=== PATIENT | female | born 1985 | race Caucasian/White ===

== ENCOUNTER 2024-12-14 10:23 | Outpatient (REF) | payer OTHER, SELFPAY ==
--- OUTSIDE RECORDS SUMMARY | 2024-12-14 12:18 | XMS_ITS | Encounter Summary ---
Author Organization [employer] Address [address] [place] [address] Care Team Providers Care Architectural Representative Name Role Phone Мария Galeana MD Primary Care Provider [phone] Encounter Details Date Type Department Care Team (Latest Contact Info) Description 12/14/2024 Travel Social History Tobacco Use Types Packs/Day Years Used Date Smoking Tobacco: Former Cigarettes 1 31.2 S tarted: 1993 Smokeless Tobacco: Never Alcohol Use Standard Drinks/Week Comments Never 0 (1 standard drink = 0.6 oz pur e alcohol) Depression Answer Date Recorded Patient Health Questionnaire-9 Score 17 12/14/2024 Patient Health Questionnaire-9 Score 17 12/14/2024 Last PHQ-9: Questionnaire Data Not on file 0 12/14/2024 Housing Stability Answer Date Recorded What is your housing situation today? I have juan evans 12/07/[address] you li ve. Do you have problems with any of the following? None of the above 12/07/2024 Food Insecurity Answer Date Recorded Within the past 12 months, y ou worried that your food would run out before you got money to buy more: Never True 12/07/2024 Within the past 12 months,th e food you bought just didn't last and you didn't have enough money to get more: Never True Transportation Answer Date Recorded In the past 12 months, has l ack of transportation kept you from medical appts, meetings, work or from getting things needed for daily living? No 12/07/2024 Utilities Answer Date Recorded In the past 12 months, has t he electric, gas, oil or water company threatened to shut off services in your home? No 12/07/2024 Depression Answer Date Recorded Patient Health Questionnaire-2 Score 4 12/14/2024 Internet Access Answer Date Recorded Internet Access Q1 Yes 12/07/2024 Internet Access Q2 Not on file 12/07/2024 Comments No Sex and Gender Information Value Date Recorded Sex Assigned at Female 11/15/2024 3:09 PM EST Legal Sex Female 3:08 PM EST Gender Identity Female 11/15/2024 7:50 PM EST Sexual Orientation Straight 12/14/2024 9: 00 AM EST documented as of this encounter Plan of Treatment Upcoming Encounters Date Type Department Care Team (Late st Contact Info) Description 02/09/2025 10:00 AM EDT Procedure Visit [facility] [address] [place] [address] Airam Reynaga, CNM [address] [place] [address] 03/08/2025 10:00 AM EDT Telemedicine [facility] [address] [place] [address] Мария Galeana MD [address] [place] [address] documented as of this encounter Visit Diagnoses Not on filedocumented in this encounter Additional Health Concerns Assessment Noted Time PHQ-9 Depression Total Score: 17 025 9:48 AM EST documented as of this encounter Care Teams Architectural Representative Relationship Specialty Start Date End Date Мария Galeana MD [address] [place] [address] PCP - General Family Medicine 12/14/24 documented as of this encounter
--- OUTSIDE RECORDS SUMMARY | 2024-12-14 12:18 | XMS_ITS | Encounter Summary ---
Author Organization [employer] Address [address] [place] [address] [address] [place] [address] Care Team Providers Care Furniture Fabricator Name Role Phone Unavailable Primary Care Provider Unavailabl e Reason for Visit * Reason Onset Date Comments new patient request 11/15/2024 Encounter Details Date Type Department Care Team (Late st Contact Info) Description 11/15/2024 Telephone [facility] [address] [place] [address] Philipp Lepe MD [address] [place] [address] new patient request Social History Tobacco Use Types Packs/Day Years Used Date Smoking Tobacco: Never Assessed Comments Unknown Sex and Gender Information Value Date Recorded Sex Assigned at Female 11/15/2024 3:09 PM EST Legal Sex Female 3:08 PM EST Gender Identity Female 11/15/2024 7:50 PM EST Sexual Orientation Straight 12/14/2024 9: 00 AM EST documented as of this encounter Miscellaneous Notes * Telephone Encounter - Kalyani Gallegos - 11/15/2024 3:28 PM EST Outgoing call to pt to book TEACHERS AIDE appt. Patient booked for 12/14/[address] Galeana. Medical conditions reported: Anemic, Pre- diabetic. Appt reminder sent via text and mail. * Telephone Encounter - Everton Camarillo - 11/15/2024 3:11 PM EST TC from caller requesting NEW PATIENT visit . DX : Anemic Pre-diabetic ( never follow up) Insurance name : earl Location : [facility] Demographic information updated documented in this encounter Plan of Treatment Upcoming Encounters Date Type Department Care Team (Late st Contact Info) Description 02/09/2025 10:00 AM EDT Procedure Visit [facility]ED[facility] [address] [place] [address] Airam Reynaga, FIDEL [address] [place] [address] 03/08/2025 10:00 AM EDT Telemedicine [facility] [address] [place], [place] [id number] Мария Galeana MD [address] [place] [address] documented as of this encounter Visit Diagnoses Not on filedocumented in this encounter
--- OUTSIDE RECORDS SUMMARY | 2024-12-14 12:18 | XMS_ITS | Encounter Summary ---
Author Organization [employer] Address [address] [place] [address] Care Team Providers Care Adoption Manager Name Role Phone Unavailable Primary Care Provider Unavailabl e Encounter Details Date Type Department Care Team (Latest Contact Info) Description 12/07/2024 Travel Social History Tobacco Use Types Packs/Day Years Used Date Smoking Tobacco: Never Assessed Housing Stability Answer Date Recorded What is [...] off services in your home? No 12/07/2024 Internet Access Answer Date Recorded Internet Access Q1 Yes 12/07/2024 Internet Access Q2 Not on file 12/07/2024 Comments Unknown Sex and Gender Information Value [...] Description 02/09/2025 10:00 AM EDT Procedure Visit [facility] MED & PEDS [address] [place] [address] Airam Reynaga, FIDEL [address] [place] [address] 03/08/2025 10:00 AM EDT Telemedicine [facility] MED & PEDS [address] [place] [address] Мария Galeana MD [address] [place] [address] documented as of this encounter Visit Diagnoses Not on filedocumented in this encounter
--- OUTSIDE RECORDS SUMMARY | 2024-12-14 12:18 | XMS_ITS | Encounter Summary ---
Author Organization [employer] Address [address] [facility] [address]t [place] [address] Care Team Providers Care Can Filling Machine Operator Name Role Phone Unavailable Primary Care Provider Unavailabl e Reason for Visit * Reason Comments Pre-visit Planning SDOH negative, Tobac co screening negative. Encounter Details Date Type Department Care Team ([facility] st Contact Info) Description 12/07/2024 Patient Outreach [facility] [address] [place] [address] Мария Galeana MD [address] [place] [address] Pre-visit Planning (SDOH negative, Tobacco screening negative. ) Social History Tobacco Use Types Packs/Day Years [...] AM EST documented as of this encounter Progress Notes * Molly Ulrich - 12/07/2024 3:17 PM EST CC Molly Espinal placed successful outbound call to patient for pre-visit planning. Patient name and confirmed. Patient confirms appt date and time, and has transportation arrangements. Biggest concern for appointment at this time is would like to check for diabetes. Appropriate screenings completed in anticipation of appointment. documented in this encounter Plan of Treatment Upcoming Encounters Date Type Department Care Team (Late st Contact Info) Description 02/09/2025 10:00 AM EDT Procedure Visit [facility] [address] [place] [address] Airam Reynaga, FIDEL [address] [place] [address] 03/08/2025 10:00 AM EDT Telemedicine [facility] [address] [place] [address] Мария Galeana MD [address] [place] [address] documented as of this encounter Visit Diagnoses Not on filedocumented in this encounter
--- OUTSIDE RECORDS SUMMARY | 2024-12-14 12:18 | XMS_ITS | Clinical Summary ---
Author Organization [employer] Address [address] [place] [address] Care Team Providers Care Cashier Manager Name Role Phone Мария Galeana MD Primary Care Provider [phone] Allergies No known active allergies Medications ibuprofen 800 MG tablet Take 800 mg by mouth. 06/09/2023 Active hydrOXYzine pamoate (Vistaril) 25 MG capsule Take 1 capsule (25 mg) by mouth if needed at bedtime for anxiety. 30 capsule 2 12/14/2024 Active Active Problems Problem Noted Date Diagnosed Date Anxiety 12/14/2024 Migraine without aura and wi thout status migrainosus, not intractable 12/14/2024 Prediabetes 12/14/2024 Encounters Date Type Department Care Team Description 12/14/2024 9:30 AM EST Office Visit [facility] MED & PEDS [address] [place] [address] Мария Galeana MD Anxiety (Primary Dx); Depression, unspecified depression type; Migraine without aura and without status migrainosus, not intractable; Encounter for screening mammogram for breast cancer; Prediabetes; Encounter for immunization 12/14/2024 Travel 12/07/2024 Patient Outreach [facility] PEDS [address] [place] [address] Мария Galeana MD Pre-visit Planning (SDOH negative, Tobacco screening negative. ) 12/07/2024 Travel 11/15/2024 Telephone [facility] [address] [place] [address] Philipp Lepe MD new patient request from Last 3 Months Immunizations Name Administration Dates Next Due Influenza Injectable Quadriv alant Preservative Free IIV4 MDCK 11/11/2017 Influenza, IIV3, injectable 09/19/2019 Influenza, seasonal, injectable, preservative fr ee 12/14/2024 Td (adult), unspecified 01/06/2020 Tdap 06/02/2019 Social History Tobacco Use Types Packs/Day Years Used Date Smoking Tobacco: Former Cigarettes 1 31.2 S tarted: 1993 Smokeless Tobacco: Never Tobacco Cessation:Counseling Given: Not Answered Alcohol Use Standard Drinks/Week Comments Never 0 [...] Orientation Straight 12/14/2024 9: 00 AM EST Last Filed Vital Signs Vital Sign Reading Time Taken Comments Blood Pressure 139/81 12/14/2024 9:27 AM EST Pulse 74 12/14/2024 9:27 AM EST Temperature 36.7 ??C (98.1 ??F) 12/14/2024 9:27 AM ES T Respiratory Rate 18 12/14/2024 9:27 AM EST Oxygen Saturation 99% 12/14/2024 9:27 AM EST Inhaled Oxygen Concentration - - Weight 75.3 kg (166 lb) 12/14/2024 9:27 AM EST Height 158.8 cm (5' 2.5 ) 12/14/2024 9:27 AM EST Body Mass Index 29.88 12/14/2024 9:27 AM EST Plan of Treatment Upcoming Encounters Date Type Department Care Team (Late st Contact Info) Description 02/09/2025 10:00 AM EDT Procedure Visit [facility] MED & PEDS [address] [place] [address] Airam Reynaga, GER [address] [place] [address] 03/08/2025 10:00 AM EDT Telemedicine [facility] MED & PEDS [address] [place] [address] Мария Galeana MD [address] [place] [address] Health Maintenance Due Date Last Done Comments Diabetes: Hemoglobin A1C 1983 HIV Screening 1983 Alcohol/Substance Use Screening 1995 Family Planning (PISQ) 1998 Hepatitis C Screening 2001 Hepatitis B Vaccines (1 of 3 - 19+ 3-dose series) 2002 Pneumococcal Vaccine: Pediatrics (0 to 5 Years) and At-Risk Patients (6 to 49) Years) (1 of 2 - PCV) 2002 Pap Smear 2004 Cervical Cancer Screening 2013 HPV/Cotest 2013 Mammogram 2023 COVID-19 Vaccine (4 2023-2 5 season) 2024 01/07/2022, 02/11/2021, 01/20/2021 Depression Monitoring (PHQ-9) 06/16/2025, 12/14/2024 SDOH Screening 12/07/2025 12/07/2024 Depression Screening 12/14/2025 12/14/2024, 12/14/2024 Tobacco Screening 12/14/2025 12/14/2024 DTaP/Tdap/Td Vaccines (3 - T d or Tdap) 01/05/2030 01/06/2020, 06/02/2019 Zoster Vaccines (1 of 2) 2033 RSV Patients and Patients Aged 60 years or older (1 - 1-dose 75+ series) 2058 Influenza Vaccine Completed 12/14/2024, 09/19/2019, 11/11/2017 HIB Vaccines Aged Out No longer eligi ble based on patient's age to complete this topic HPV Vaccines Aged Out No longer eligi ble based on patient's age to complete this topic Hepatitis A Vaccines Aged Out No long er eligible based on patient's age to complete this topic IPV Vaccines Aged Out No longer eligi ble based on patient's age to complete this topic Meningococcal Vaccine Aged Out No harjinder dee eligible based on patient's age to complete this topic RSV under 20 months Aged Out No longe r eligible based on patient's age to complete this topic Rotavirus Vaccines Aged Out No longer eligible based on patient's age to complete this topic Insurance [facility] Care Teams Cashier Manager Relationship Specialty Start Date End Date Мария Galeana MD [address] [place] [id number] PCP - General Family Medicine 12/14/24
--- OUTSIDE RECORDS SUMMARY | 2024-12-14 12:18 | XMS_ITS | Clinical Summary ---
Author Organization [facility] Address [address] [place] [address] Phone Care Team Providers Care Water Fitness Instructor Name Role Phone Bam Youngblood MD Primary Care Provider [phone] Allergies No known active allergies Medications No known medications Active Problems No known active problems Encounters Date Type Department Care Team Description 11/07/2024 4:38 PM EST - 11/07/2024 7:38 PM EST Emergency [facility] Emergency [address] [place] [address] Geraldo Escalante MD Parainfluenza (Primary Dx) Discharge Disposition: Home or Self Care from Last 3 Months Social History Tobacco Use Types Packs/Day Years Used Date Smoking Tobacco: Former Cigarettes 0.5 22.2 S tarted: 10/12/2002 Smokeless Tobacco: Never Tobacco Cessation:Counseling Given: Not Answered Alcohol Use Standard Drinks/Week Comments Not Currently 0 (1 standard drink = 0.6 oz pur e alcohol) Comments Unknown Sex and Gender Information Value Date Recorded Sex Assigned at Female 11/07/2024 10:02 PM EST Legal Sex Female 7:32 PM EST Gender Identity Female 11/07/2024 10:02 PM EST Sexual Orientation Choose not to disclose 2024 10:02 PM EST Obstetrics History Last Filed Vital Signs Vital Sign Reading Time Taken Comments Blood Pressure 139/84 11/07/2024 7:00 PM EST Pulse 88 11/07/2024 7:00 PM EST Temperature 37.1 ??C (98.8 ??F) 11/07/2024 7:00 PM ES T Respiratory Rate 15 11/07/2024 7:00 PM EST Oxygen Saturation 98% 11/07/2024 7:00 PM EST Inhaled Oxygen Concentration - - Weight 74.8 kg (165 lb) 11/07/2024 10:33 AM EST Height 154.9 cm (5' 1 ) 11/07/2024 10:33 AM EST Body Mass Index 31.18 11/07/2024 10:33 AM EST Plan of Treatment Health Maintenance Due Date Last Done Comments Hepatitis B Vaccines (1 of 3 - 19+ 3-dose series) 2002 Cervical Cancer Screening: P ap Smear 2004 Depression Screening 09/13/2022 HIV Screening 09/13/2022 Hepatitis C Screening 09/13/2022 Social Influencers of Health Screening 09/13/2022 Breast Cancer Screening 03/20/2024 03/20/2022 COVID-19 Vaccine (4 - 2023-2 5 season) 2024 01/07/2022, 02/11/2021, 01/20/2021 Influenza Vaccine (#1) 2024 9, 11/11/2017 DTaP,Tdap,and Td Vaccines (3 - Td or Tdap) 01/05/2030 01/06/2020, 06/02/2019 HIB Vaccines Aged Out No longer eligi [...] on patient's age to complete this topic MMR Vaccines Aged Out No longer eligi ble based on patient's age to complete this topic Meningococcal ACWY Vaccine Aged Out N o longer eligible based on patient's age to complete this topic Meningococcal B Vacine Aged Out No lo nger eligible based on patient's age to complete this topic Pneumococcal Vaccine: Pediatrics (0 to 5 Years) and At-Risk Patients (6 to 64 Years) Aged Out No longer eligible b ased on patient's age to complete this topic RSV Immunization Patients Under 20 months Aged Out No longer eligible b ased on patient's age to complete this topic Varicella Vaccines Aged Out No longer eligible based on patient's age to complete this topic Procedures Procedure Name Priority Date/Time Associated Diagnosis Comments RESPIRATORY VIRUS PANEL MOLECULAR STUDY STAT 11/07/2024 5:54 PM EST XR CHEST 2 VIEWS STAT 11/07/2024 1:20 PM EST CBC WITH AUTO DIFFERENTIAL STAT 11/07/2024 10:42 AM EST BASIC METABOLIC PANEL STAT 11/07/2024 10:42 AM EST CBC AND DIFFERENTIAL STAT 11/07/2024 10:42 AM EST ECG 12-LEAD STAT 11/07/2024 10:41 AM EST ECG ANNOTATED 11/07/2024 RAFAT SCREENING DIGITAL Routine 03/20/2022 5:13 PM EDT Encounter for screening mammogram for malignant neoplasm of breast from Last 3 Months or Most Recently Relevant to Health Maintenance Results * (ABNORMAL) Respiratory virus panel molecular study (11/07/2024 5:54 PM EST) Adenovirus Detection by PCR Not Detected Not Detected LAB MICROBIOLOGY METHOD 11/07/2024 7:29 PM [facility] Influenza A PCR Not Detected Not Detected LAB MICROBIOLOGY METHOD 11/07/2024 7:29 PM [facility] Influenza B PCR Not Detected Not Detected LAB MICROBIOLOGY METHOD 11/07/2024 7:29 PM [facility] Coronavirus 229E Not Detected Not Detected LAB MICROBIOLOGY METHOD 11/07/2024 7:29 PM [facility] Coronavirus HKU1 Not Detected Not Detected LAB MICROBIOLOGY METHOD 11/07/2024 7:29 PM [facility] Coronavirus OC43 Not Detected Not Detected LAB MICROBIOLOGY METHOD 11/07/2024 7:29 PM [facility] Coronavirus NL63 Not Detected Not Detected LAB MICROBIOLOGY METHOD 11/07/2024 7:29 PM [facility] Parainfluenza Virus 1 Not Detected Not Detected LAB MICROBIOLOGY METHOD 11/07/2024 7:29 PM [facility] Parainfluenza Virus 2 Not Detected Not Detected LAB MICROBIOLOGY METHOD 11/07/2024 7:29 PM [facility] Parainfluenza Virus 3 Not Detected Not Detected LAB MICROBIOLOGY METHOD 11/07/2024 7:29 PM [facility] Parainfluenza Virus 4 Detected(A ) Not Detected LAB MICROBIOLOGY METHOD 11/07/2024 7:29 PM [facility] RSV PCR Not Detected Not Detected LAB MICROBIOLOGY METHOD 11/07/2024 7:29 PM [facility] Human Metapneumovirus A and B Not Detected Not Detected LAB MICROBIOLOGY METHOD 11/07/2024 7:29 PM [facility] Rhinovirus/Entero virus Not Detected Not Detected LAB MICROBIOLOGY METHOD 11/07/2024 7:29 PM [facility] Bordetella pertussis Not Detected Not Detected LAB MICROBIOLOGY METHOD 11/07/2024 7:29 PM [facility] Bordetella parapertussis Not Detected Not Detected LAB MICROBIOLOGY METHOD 11/07/2024 7:29 PM [facility] Mycoplasma pneumo by PCR Not Detected Not Detected LAB MICROBIOLOGY METHOD 11/07/2024 7:29 PM [facility] Chlamydia pneumoniae Not Detected Not Detected LAB MICROBIOLOGY METHOD 11/07/2024 7:29 PM [facility] SARS COV-2 Not Detected Not Detected LAB MICROBIOLOGY METHOD 11/07/2024 7:29 PM [facility] Swab Both anterior nares / Unknown Non-blood Collection / Unknown 11/07/2024 5:54 PM EST 11/07/2024 6:13 PM EST Narrative [facility] - 11/07/2024 7:29 PM EST Testing was performed using the Just Dial Respiratory Pathogen PCR Assay. All results must be correlated with the clinical findings. Results should not be used as the sole basis for diagnosis. False Negative results may occur from the presence of sequence variants in the region targeted by the assay or the presence of inhibitors. Results may be affected by concurrent antiviral/antimicrobial therapy or levels of organisms that are below the limit of detection. Ethel HARDEN LAB MICROBIOLOGY - GENERAL ORDERABLES Final Result [facility] [address] [place] [address], * XR Chest 2 Views (11/07/2024 1:20 PM EST) Anatomical Region Laterality Modality Body Radiographic Yanelis ging 11/07/2024 1:22 PM EST Impressions 11/07/2024 1:22 PM EST Impression: No active pulmonary process identified. No significant change. Telearnel HARDEN ([id number]) -------- FINAL REPORT -------- Dictated By: Lucia David Dictated Date: 11/07/2024 13:22 ET Assigned Physician: Lucia David Reviewed and Electronically Signed By: Lucia David Signed Date: 11/07/2024 13:22 ET Workstation ID: [id number] Transcribed By: Self Edit Transcribed Date: 11/07/2024 13:22 ET Narrative 11/07/2024 1:22 PM EST History: Dyspnea. Comparison: 04/18/24 Findings: PA and lateral views. The cardiomediastinal silhouette, hilar contours and pulmonary vascularity are within normal limits. The lungs are clear. The costophrenic angles are sharp. Minimal thoracic vertebral endplate spurring is noted. Procedure Note Lucia David MD - 11/07/2024 History: Dyspnea. Comparison: 04/18/24 Findings: PA and lateral views. The cardiomediastinal silhouette, hilar contours andpulmonary vascularity are within normal limits. The lungs are clear. Thecostophrenic angles are sharp. Minimal thoracic vertebral endplate spurring is noted. IMPRESSION: Impression: No active pulmonary process identified. No significant change. Telerad FINA ([id number]) -------- FINAL REPORT -------- Dictated By: Lucia David Dictated Date: 11/07/2024 13:22 ET Assigned Physician: Lucia David Reviewed and Electronically Signed By: Lucia David Signed Date: 11/07/2024 13:22 ET Workstation ID: [id number] Transcribed By: Self Edit Transcribed Date: 11/07/2024 13:22 ET Kellie Marin DO IMG XR PROCEDURES Final R esult * (ABNORMAL) CBC auto differential (11/07/2024 10:42 AM EST) WBC 6.0 4.8 - 10.8 K/mcL LAB HEMETOLOGY METHOD 11/07/2024 11:24 AM [facility] RBC 4.20 3.80 - 4.80 M/mcL LAB HEMETOLOGY METHOD 11/07/2024 11:24 AM [facility] Hemoglobin 11.1(L) 11.5 - 16.0 g/dL LAB HEMETOLOGY METHOD 11/07/2024 11:24 AM [facility] Hematocrit 35.0 35.0 - 47.0 % LAB HEMETOLOGY METHOD 11/07/2024 11:24 AM [facility] MCV 83.9 79.0 - 98.0 FL LAB HEMETOLOGY METHOD 11/07/2024 11:24 AM [facility] MCH 26.6(L) 27.0 - 32.0 pcg LAB HEMETOLOGY METHOD 11/07/2024 11:24 AM [facility] MCHC 31.7(L) 32.0 - 37.0 g/dL LAB HEMETOLOGY METHOD 11/07/2024 11:24 AM [facility] RDW 14.9 11.0 - 15.0 % LAB HEMETOLOGY METHOD 11/07/2024 11:24 AM [facility] Platelets 328 130 - 400 K/mcL LAB HEMETOLOGY METHOD 11/07/2024 11:24 AM [facility] MPV 10.8 7.0 - 11.0 FL LAB HEMETOLOGY METHOD 11/07/2024 11:24 AM [facility] NRBC 0.0 <1.0 % LAB HEMETOLOGY METHOD 11/07/2024 11:24 AM [facility] NRBC Absolute 0.00 <0.10 K/mcL LAB HEMETOLOGY METHOD 11/07/2024 11:24 AM [facility] Neutrophils Relative 52.8 % LAB HEMETOLOGY METHOD 11/07/2024 11:24 AM [facility] Lymphocytes Relative 28.3 % LAB HEMETOLOGY METHOD 11/07/2024 11:24 AM [facility] Monocytes Relative 12.2 % LAB HEMETOLOGY METHOD 11/07/2024 11:24 AM [facility] Eosinophils Relative 5.2 % LAB HEMETOLOGY METHOD 11/07/2024 11:24 AM [facility] Basophils Relative 1.2 % LAB HEMETOLOGY METHOD 11/07/2024 11:24 AM [facility] Immature Granulocytes Relative 0.3 % LAB HEMETOLOGY METHOD 11/07/2024 11:24 AM [facility] Neutrophils Absolute 3.16 1.50 - 7.00 K/mcL LAB HEMETOLOGY METHOD 11/07/2024 11:24 AM [facility] Lymphocytes Absolute 1.69 1.00 - 5.00 K/mcL LAB HEMETOLOGY METHOD 11/07/2024 11:24 AM EST [facility] Monocytes Absolute 0.73 0.20 - 1.00 K/mcL LAB HEMETOLOGY METHOD 11/07/2024 11:24 AM EST [facility] Eosinophils Absolute 0.31 0.00 - 0.50 K/mcL LAB HEMETOLOGY METHOD 11/07/2024 11:24 AM EST [facility] Basophils Absolute 0.07 0.00 - 0.20 K/mcL LAB HEMETOLOGY METHOD 11/07/2024 11:24 AM [facility] Immature Granulocytes Absolute 0.02 0.00 - 0.03 K/mcL LAB HEMETOLOGY METHOD 11/07/2024 11:24 AM [facility] Blood Venous blood specimen / Unknown Venipuncture / Unknown 11/07/2024 10:42 AM EST 11/07/2024 11:12 AM EST Dandre Elie Marin DO LAB BLOOD ORDERABLES Monet l Result [facility] [address] [place] [address], * (ABNORMAL) Basic metabolic panel (11/07/2024 10:42 AM EST) Sodium 136 133 - 145 mmol/L LAB CHEMISTRY METHOD 11/07/2024 11:50 AM [facility] Potassium 4.1 3.5 - 5.5 mmol/L LAB CHEMISTRY METHOD 11/07/2024 11:50 AM [facility] Chloride 105 96 - 110 mmol/L LAB CHEMISTRY METHOD 11/07/2024 11:50 AM [facility] CO2 25 21 - 32 mmol/L LAB CHEMISTRY METHOD 11/07/2024 11:50 AM [facility] Anion Gap 6 3 - 11 LAB CHEMISTRY METHOD 11/07/2024 11:50 AM [facility] Glucose 115(H) 70 - 100 mg/dL LAB CHEMISTRY METHOD 11/07/2024 11:50 AM EST [facility] BUN 8 5 - 25 mg/dL LAB CHEMISTRY METHOD 11/07/2024 11:50 AM [facility] Creatinine 0.79 0.50 - 1.10 mg/dL LAB CHEMISTRY METHOD 11/07/2024 11:50 AM EST [facility] eGFR 97 >=60 mL/min/1. 73m2 LAB CHEMISTRY METHOD 11/07/2024 11:50 AM EST [facility] Comment:Calculation based on the??Chronic Kidney Disease Epidemiology Collaboration (CKD-EPI) equation refit??without adjustment for race. BUN/Creatinine Ratio 10.1 LAB CHEMISTRY METHOD 11/07/2024 11:50 AM [facility] Calcium 9.3 8.5 - 10.5 mg/dL LAB CHEMISTRY METHOD 11/07/2024 11:50 AM [facility] Blood Venous blood specimen / Unknown Venipuncture / Unknown 11/07/2024 10:42 AM EST 11/07/2024 11:12 AM EST Kellie Elie Gunnny Tomas DO LAB BLOOD ORDERABLES Monet l Result [facility] [address] [place] [address], * ECG 12 lead (11/07/2024 10:41 AM EST) Ventricular Rate ECG 86 BPM GEMUSE Atrial Rate 86 BPM GEMUSE P-R Interval 130 ms GEMUSE QRS Duration 70 ms GEMUSE Q-T Interval 364 ms GEMUSE QTc 435 ms GEMUSE P Wave [place] 53 degrees GEMUSE R [place] 37 degrees GEMUSE T [place] 27 degrees GEMUSE ECG Interpretation Normal sinus rhythm When compared with ECG of 30-SEP-2022 17:47, No significant change was found Confirmed by ASH MCGUIRE ([id number]) on 11/07/2024 9:18:12 PM GEMUSE 11/07/2024 10:4 1 AM EST 11/07/2024 9:18 PM EST us Kellie Marin DO ECG ORDERABLES Final Res ult GEMUSE * ECG-Annotated (11/07/2024) us Provider Onbase ECG ORDERABLES Final Result * RAFAT SCREENING DIGITAL (03/20/2022 5:13 PM EDT) Anatomical Region Laterality Modality Mammography 03/20/2022 12:4 7 PM EDT Narrative 03/20/2022 5:13 PM EDT [facility] Diagnostic Imaging Department [address] [place] [address] Patient: ??ROBERTO CARLOS,SERGIO Coello ?/Age/Sex: 1985 - 36 - F Unit#: ??[id number] ? Location/Status: ??SPDIMAM/REG CLI ? Mnemonic/Ordering Site: ??DIGSC/SPMAM Ordering Physician: ??XAVIER CHAPMAN MD Rafat Screening Digital - 03/20/221621 History: Breast cancer screening. Technique: ?? Bilateral digital mammography. Conventional CC and MLO projections with tomosynthesis MLO views and computer aided detection. Comparison: None. ??Baseline examination. Findings: ?? Breast density: Heterogeneous, potentially obscuring small lesions, category c density (as calculated by [employer] Vol[employer] software). Discrete oval 5 x 7 mm masslike asymmetry with adjacent 3.4 mm lobulation projects posterior lateral upper right breast as revealed on MLO projection including tomography, possible intramammary lymph node although not definitively characterized. Breast tissue otherwise without concerning focal abnormality. ??No architectural distortion or suspicious grouping of microcalcification. Impression: 1. ??Right breast masslike asymmetry affecting posterior lateral upper right breast, roughly 10 o'clock position, 10-11 cm from the nipple is incompletely characterized. ??Recommend targeted right breast ultrasound for further assessment. 2. ??Otherwise negative mammography. ??No suspicious abnormality identified on the left. Patient will be contacted directly to arrange for supplementary imaging. BIRADS Category 0: Incomplete. Needs further imaging evaluation, [id number], [id number] Patient information entered into a reminder system with a target date for the next [place]ogram. [id number] Dictating Physician: ??SCOOTER ALONSO MD Electronically Signed by: ??SCOOTER ALONSO MD Dic Date/Time: ??03/20/22 170 Sign date/Time: ??03/20/22 171 Procedure Note Scooter Alonso MD - 10/01/2022 [facility] Diagnostic Imaging Department [address] [place] [address] Patient: SERGIO AZEVEDOO.B./Age/Sex: 1985 - 36 - F Unit#: [id number] Location/Status: [facility] CLI Mnemonic/Ordering Site: [facility] Ordering Physician: XAVIER CHAPMAN MD Rafat Screening Digital - 03/20/22 - 1622 History: Breast cancer screening. Technique: Bilateral digital mammography. Conventional CC and MLOprojections with tomosynthesis MLO views and computer aided detection. Comparison: None. Baseline examination. Findings: Breast density: Heterogeneous, potentially obscuring smalllesions, category c density (as calculated by [employer] Vol[employer] software). Discrete oval 5 x 7 mm masslike asymmetry with adjacent 3.4 mmlobulation projects posterior lateral upper right breast as revealed on MLOprojection including tomography, possible intramammary lymph node although notdefinitively characterized. Breast tissue otherwise without concerning focal abnormality. Noarchitectural distortion or suspicious grouping of microcalcification. Impression: 1. Right breast masslike asymmetry affecting posterior lateral upperright breast, roughly 10 o'clock position, 10-11 cm from the nipple isincompletely characterized. Recommend targeted right breast ultrasound for further assessment. 2. Otherwise negative mammography. No suspicious abnormality identifiedon the left. Patient will be contacted directly to arrange for supplementary imaging. BIRADS Category 0: Incomplete. Needs further imaging evaluation, [id number], [id number] Patient information entered into a reminder system with a target date forthe next mammogram. [id number] Dictating Physician: SCOOTER ALONSO MD Electronically Signed by: SCOOTER ALONSO MD Dic Date/Time: 03/20/22 170 Sign date/Time: 03/20/22 171 Xavier Chapman MD IMG BI PROCEDURES Final Result from Last 3 Months or Most Recently Relevant to Health Maintenance Additional Health Concerns Infection Onset Date Last Indicated Parainfluenza Virus 11/07/2024 11/07/2024 Insurance MEDICAID - [place] Care Teams Water Fitness Instructor Relationship Specialty Start Date End Date Bam Youngblood MD [address] [place] [address] Tremaine AsencioImeldaBOB PCP - General Internal Medicine 10/12/20
--- OUTSIDE RECORDS SUMMARY | 2024-12-14 12:18 | XMS_ITS | Encounter Summary ---
Author Organization [employer] Address [address] [facility] [address] [place] [address] Care Team Providers Care Pig Farmer Name Role Phone Мария Galeana MD Primary Care Provider [phone] Reason for Referral * Imaging (Routine) - Closed Specialty Diagnoses / Procedures Referred By Alexandra denson Referred To Contact Radiology Diagnoses Encounter for screening mammogram for breast cancer Procedures BI Mammogram Screening Tomosynthesis Bilateral Мария Galeana MD [address] [place] [address] Phone: tel: fax: [facility] [address] [place], [place] Phone: tel: fax: Referral ID Status Reason Start Date Expiration Date Visits Re quested Visits Authorized [id number] Closed 12/14/2024 12/14/2025 1 1 Reason for Visit * Reason Comments Establish Care New patient visit Encounter Details Date Type Department Care Team (Late st Contact Info) Description 12/14/2024 9:30 AM EST Office Visit [facility] [address] [place] [address] Мария Galeana MD [address] [place] [address] Anxiety (Primary Dx); Depression, unspecified depression type; Migraine without aura and without status migrainosus, not intractable; Encounter for screening mammogram for breast cancer; Prediabetes; Encounter for immunization Social History Tobacco Use Types Packs/Day Years [...] is your housing situation today? I have juanfili evans 12/07/[address] you [...] AM EST documented as of this encounter Last Filed Vital Signs Vital Sign Reading [...] Mass Index 29.88 12/14/2024 9:27 AM EST documented in this encounter Progress Notes * Мария Galeana MD - 12/14/2024 9:30 AM EST Subjective Patient ID: Yoly Kaplan is a 39 y.o. female who presents for Establish Care (New patient visit/). Anxiety Presents for initial visit. Symptoms include excessive worry, nervous/anxious behavior, palpitations and panic. Patient reports no chest pain, compulsions, confusion, decreased concentration, feelingof choking or shortness of breath. Symptoms occur occasionally. The severity of symptoms is interfering with daily activities. The symptoms are aggravated by work stress. The quality of sleep is fair. There are no known risk factors. Past treatments include nothing. Review of Systems Constitutional: Negative. Respiratory: Negative. Negative for shortness of breath. Cardiovascular: Positive for palpitations. Negative for chest pain. Gastrointestinal: Negative. Genitourinary: Negative. Musculoskeletal: Negative for neck pain. Neurological: Negative for headaches. Psychiatric/Behavioral: Negative for confusion and decreased concentration. The patient is nervous/anxious. Objective Physical Exam Constitutional: Appearance: Normal appearance. Cardiovascular: Rate and Rhythm: Normal rate and regular rhythm. Pulses: Normal pulses. Heart sounds: Normal heart sounds. Pulmonary: Effort: Pulmonary effort is normal. Abdominal: General: Abdomen is flat. Neurological: Mental Status: She is alert. Assessment/Plan Diagnoses and all orders for this visit: Anxiety Comments: Started on Hydroxyzine at bedtime Will refer to [facility] for further Management Depression, unspecified depression type Migraine without aura and without status migrainosus, not intractable Comments: Stable on Ibuprofen as needed Encounter for screening mammogram for breast cancer - BI Mammogram Screening Tomosynthesis Bilateral; Future Prediabetes Comments: Labs ordered today Advised Low sugar and Low carb diet. Counseled regarding self-monitoring of blood glucose. Counseled re: potential co-morbidities including cardiovascular disease. Counseled re: potential co-morbidities include neuropathy and retinopathy. Counseled re: potential co-morbidities include nephropathy. Orders: - Basic Metabolic Panel; Future - Lipid Panel, Standard; Future - Hepatic Function Panel; Future - Hemoglobin A1c; Future Encounter for immunization - FLU VACCINE TRIVALENT (Fluarix) 6 mo + Other orders - hydrOXYzine pamoate (Vistaril) 25 MG capsule; Take 1 capsule (25 mg) by mouth if needed at bedtime for anxiety. documented in this encounter Plan of Treatment Upcoming Encounters Date Type Department Care Team (Late st Contact Info) Description 02/09/2025 10:00 AM EDT Procedure Visit [facility] [address] [place] [address] Airam Reynaga, CNM [address] [place] [address] 03/08/2025 10:00 AM EDT Telemedicine [facility] [address] [place] [address] Мария Galeana MD [address] [place] [address] Scheduled Orders Name Type Priority Associated Diagnoses Orde r Schedule Basic Metabolic Panel Lab Routine Prediabetes Expected: 12/14/2024 (Approximate), Expires: 12/14/2025 Lipid Panel, Standard Lab Routine Prediabetes Expected: 12/14/2024 (Approximate), Expires: 12/14/2025 Hepatic Function Panel Lab Routine Prediabetes Expected: 12/14/2024 (Approximate), Expires: 12/14/2025 Hemoglobin A1c Lab Routine Prediabetes Expected: 12/14/2024 (Approximate), Expires: 12/14/2025 BI Mammogram Screening Tomosynthesis Bilateral Imaging Routine Encounter for screening mammogram for breast cancer Expected: 12/14/2024, Expires: 02/13/2026 documented as of this encounter Visit Diagnoses Diagnosis Anxiety- Primary Anxiety state, unspecified Depression, unspecified depression type Migraine without aura and without status migrainosus, not intractable Encounter for screening mammogram for breast cancer Prediabetes Other abnormal glucose Encounter for immunization documented in this encounter Additional Health Concerns Assessment Noted Time PHQ-9 Depression Total Score: 17 025 9:48 AM EST documented as of this encounter Care Teams Pig Farmer Relationship Specialty Start Date End Date Мария Galeana MD [address] [place] [address] PCP - General Family Medicine 12/14/24 documented as of this encounter
[2024-12-14 14:18] LABS: Estimated Average Glucose 117 mg/dL; Hemoglobin A1c % 5.7 % (<6.0); Total Hemoglobin (HGBA1C) 2720.5579 umol/L
[2024-12-14 14:42] LABS: Alanine Aminotransferase 17 U/L (0-31); Albumin Level 4.1 g/dL (3.5-5.0); Alkaline Phosphatase 60 U/L (39-117); Anion Gap 9 (12-20); Aspartate Amino Transferase 23 U/L (5-31); Bilirubin Direct 0.2 mg/dL (0.0-0.5); Bilirubin Total 0.4 mg/dL (0.0-1.0); Blood Urea Nitrogen 10 mg/dL (9-16); Calcium 8.8 mg/dL (8.4-10.2); Carbon Dioxide 26 mmol/L (22-29); Chloride 108 mmol/L (96-108); Cholesterol 189 mg/dL (<200); Estimated Glomerular Filt Rate > 60; Glucose Random 102 mg/dL (60-115); HDL Cholesterol 50 mg/dL (>40); LDL Cholesterol Calculated 130 mg/dL (<100); Potassium 4.1 mmol/L (3.3-5.1); Sodium 139 mmol/L (135-145); Total Protein 7.7 g/dL (6.5-8.0); Triglycerides 47 mg/dL (<150)
== END 2024-12-14 10:24 | disposition home or self-care (01) ==
LOC: HO.CHCLDS 10:23
PROVIDERS: Visit Provider Student in an Organized Health Care Education/Training Program
DX: R73.03 Prediabetes (principal)
CPT/HCPCS: 36415; 80048; 80061; 80076; 83036